=== PATIENT | female | born 1985 | race American Indian/Alaskan Native ===

== ENCOUNTER 2016-12-21 14:16 | Emergency (ER) | payer BC, OTHER ==
--- NOTE | 2016-12-21 14:32 | Emergency Department Report ---
Stated Complaint: COUGHING AND DEHYDRATED Time Seen by Provider: 12/21/16 14:28 - HPI History of Present Illness: PT states she feels dehydrated. PT states her mouth is dry. Pt states she keeps drinking water. - ROS Review of Systems: + dry mouth + nausea + fatigue decreased po intake since Tuesday lmp- yesterday - Exam Physical Exam: PT is alert and appropriate gcs 15 lips appear dry, oral mucousa moist MSE screening note: Focused history and physical exam performed. Due to findings the following was ordered: labs, accucheck ED Disposition for MSE Condition: Stable
[2016-12-21 15:29] LABS: Basophils % (Auto) 0.5 % (0.0-1.8); Eosinophils % (Auto) 0.8 % (0.0-4.3); Hematocrit 41.1 % (30.3-42.9); Hemoglobin 13.4 gm/dl (10.1-14.3); Mean Corpuscular HGB Conc 33 % (30-34); Mean Corpuscular Hemoglobin 27 pg (28-32); Mean Corpuscular Volume 84 fl (79-97); Platelet Count 334 K/mm3 (140-440); Red Blood Count 4.92 M/mm3 (3.65-5.03); Red Cell Distribution Width 14.9 % (13.2-15.2); White Blood Count 10.6 K/mm3 (4.5-11.0)
[2016-12-21 15:47] LABS: Alanine Aminotransferase 21 units/L (7-56); Albumin 4.2 g/dL (3.9-5); Alkaline Phosphatase 72 units/L (35-129); Anion Gap 22 mmol/L; BUN/Creatinine Ratio 11; Blood Urea Nitrogen 10 mg/dL (7-17); Calcium 9.5 mg/dL (8.4-10.2); Carbon Dioxide 21 mmol/L (22-30); Glucose 114 mg/dL (65-100); Sodium 142 mmol/L (137-145); Total Protein 8.4 g/dL (6.3-8.2)
[2016-12-21] MEDS ORDERED: DUONEB *Not for PRN Use IH ONE (16:44)
[2016-12-21] MEDS ORDERED: NACL 0.9% 1000 ML 1,000 ML IV ONE (16:44)
[2016-12-21 18:19] VITALS: BP 106/63
[2016-12-21] MEDS ORDERED: ROCEPHIN/NS 1 GM/50 ML 1 GM/50 ML BAG IV ONE (18:32)
--- NOTE | 2016-12-21 18:36 | Emergency Department Report ---
- General Chief Complaint: Weakness Stated Complaint: COUGHING AND DEHYDRATED Time Seen by Provider: 12/21/16 14:28 Source: patient Mode of arrival: Ambulatory Limitations: No Limitations - History of Present Illness MD Complaint: cough Onset/Timin -: days(s) Severity: moderate Consistency: intermittent Improves With: nothing Worsens With: nothing Associated Symptoms: myalgias, other (dry mouth) - Related Data Previous Rx's Medication Instructions Recorded Last Taken Type Cyclobenzaprine [Flexeril] 10 mg PO TID PRN #15 tablet 12/09/15 Unknown Rx traMADol [Ultram] 50 mg PO Q4HR PRN #20 tablet 12/09/15 Unknown Rx Azithromycin [Zithromax Z-ANNIE] 250 mg PO DAILY #6 tab 12/21/16 Unknown Rx Ibuprofen 800 mg PO Q8HR PRN #30 tablet 12/21/16 Unknown Rx Prednisone [predniSONE 10 mg 10 mg PO .TAPER #1 tab.ds.pk 12/21/16 Unknown Rx (6-Day Pack, 21 Tabs)] guaiFENesin/CODEINE [Robitussin AC] 5 ml PO Q6HR PRN #120 ml 12/21/16 Unknown Rx Allergies Allergy/AdvReac Type Severity Reaction Status Date / Time No Known Allergies Allergy Unverified 11/21/14 05:14 ED Review of Systems ROS: Stated complaint: COUGHING AND DEHYDRATED Other details as noted in HPI Comment: All other systems reviewed and negative Constitutional: no symptoms reported, malaise, weakness. denies: chills, diaphoresis, fever ENT: denies: throat pain, congestion Respiratory: cough. denies: orthopnea, shortness of breath, SOB with exertion, SOB at rest, stridor, wheezing Cardiovascular: denies: chest pain, palpitations, dyspnea on exertion, orthopnea , edema, syncope, paroxysmal nocturnal dyspnea Gastrointestinal: denies: abdominal pain, nausea, vomiting, diarrhea Genitourinary: denies: urgency, dysuria, frequency, hematuria Musculoskeletal: denies: back pain, joint swelling, arthralgia Skin: denies: rash ED Past Medical Hx - Past Medical History Previous Medical History?: Yes Hx Kidney Stones: No Additional medical history: Bronchitis - Surgical History Past Surgical History?: Yes Additional Surgical History: dental - Social History Smoking Status: Never Smoker Substance Use Type: None - Medications Home Medications: Home Medications Medication Instructions Recorded Confirmed Last Taken Type Cyclobenzaprine [Flexeril] 10 mg PO TID PRN #15 tablet 12/09/15 Unknown Rx traMADol [Ultram] 50 mg PO Q4HR PRN #20 tablet 12/09/15 Unknown Rx Azithromycin [Zithromax Z-ANNIE] 250 mg PO DAILY #6 tab 12/21/16 Unknown Rx Ibuprofen 800 mg PO Q8HR PRN #30 tablet 12/21/16 Unknown Rx Prednisone [predniSONE 10 mg 10 mg PO .TAPER #1 tab.ds.pk 12/21/16 Unknown Rx (6-Day Pack, 21 Tabs)] guaiFENesin/CODEINE [Robitussin AC] 5 ml PO Q6HR PRN #120 ml 12/21/16 Unknown Rx ED Physical Exam - General Limitations: No Limitations General appearance: alert, in no apparent distress - Head Head exam: Present: atraumatic, normocephalic, normal inspection - Eye Eye exam: Present: normal appearance, PERRL, EOMI - Respiratory Respiratory exam: Present: normal lung sounds bilaterally, wheezes. Absent: respiratory distress, rales, rhonchi, stridor, chest wall tenderness - Cardiovascular Cardiovascular Exam: Present: normal rhythm, tachycardia, normal heart sounds - Extremities Exam Extremities exam: Present: normal inspection, full ROM. Absent: tenderness - Neurological Exam Neurological exam: Present: alert, oriented X3, normal gait - Psychiatric Psychiatric exam: Present: normal affect, normal mood - Skin Skin exam: Present: warm, dry, intact ED Course Vital Signs 12/21/16 12/21/16 14:29 18:19 Temperature 98.4 F Pulse Rate 120 H 80 Respiratory 16 20 Rate Blood Pressure 133/82 Blood Pressure 106/63 [Right] O2 Sat by Pulse 99 100 Oximetry ED Medical Decision Making - Lab Data Result diagrams: 12/21/16 14:58 12/21/16 14:58 Lab Results 12/21/16 12/21/16 12/21/16 Range/Units 14:41 14:58 14:58 WBC 10.6 (4.5-11.0) K/mm3 RBC 4.92 (3.65-5.03) M/mm3 Hgb 13.4 (10.1-14.3) gm/dl Hct 41.1 (30.3-42.9) % MCV 84 (79-97) fl MCH 27 L (28-32) pg MCHC 33 (30-34) % RDW 14.9 (13.2-15.2) % Plt Count 334 (140-440) K/mm3 Lymph % (Auto) 18.1 (13.4-35.0) % [facility] % (Auto) 5.8 (0.0-7.3) % Eos % (Auto) 0.8 (0.0-4.3) % Baso % (Auto) 0.5 (0.0-1.8) % Lymph # 1.9 (1.2-5.4) K/mm3 [facility] # 0.6 (0.0-0.8) K/mm3 Eos # 0.1 (0.0-0.4) K/mm3 Baso # 0.1 (0.0-0.1) K/mm3 Seg Neutrophils % 74.8 H (40.0-70.0) % Seg Neutrophils # 7.9 H (1.8-7.7) K/mm3 Sodium 142 (137-145) mmol/L Potassium 4.0 (3.6-5.0) mmol/L Chloride 103.0 (98-107) mmol/L Carbon Dioxide 21 L (22-30) mmol/L Anion Gap 22 mmol/L BUN 10 (7-17) mg/dL Creatinine 0.9 (0.7-1.2) mg/dL Estimated GFR > 60 ml/min BUN/Creatinine Ratio 11 % Glucose 114 H (65-100) mg/dL POC Glucose 109 H (70-105) Calcium 9.5 (8.4-10.2) mg/dL Total Bilirubin 0.70 (0.1-1.2) mg/dL AST 14 (5-40) units/L ALT 21 (7-56) units/L Alkaline Phosphatase 72 (35-129) units/L Total Protein 8.4 H (6.3-8.2) g/dL Albumin 4.2 (3.9-5) g/dL Albumin/Globulin Ratio 1.0 % Lipase (13-60) units/L HCG, Qual (Negative) 12/21/16 12/21/16 Range/Units 14:58 14:58 WBC (4.5-11.0) K/mm3 RBC (3.65-5.03) M/mm3 Hgb (10.1-14.3) gm/dl Hct (30.3-42.9) % MCV (79-97) fl MCH (28-32) pg MCHC (30-34) % RDW (13.2-15.2) % Plt Count (140-440) K/mm3 Lymph % (Auto) (13.4-35.0) % [facility] % (Auto) (0.0-7.3) % Eos % (Auto) (0.0-4.3) % Baso % (Auto) (0.0-1.8) % Lymph # (1.2-5.4) K/mm3 [facility] # (0.0-0.8) K/mm3 Eos # (0.0-0.4) K/mm3 Baso # (0.0-0.1) K/mm3 Seg Neutrophils % (40.0-70.0) % Seg Neutrophils # (1.8-7.7) K/mm3 Sodium (137-145) mmol/L Potassium (3.6-5.0) mmol/L Chloride (98-107) mmol/L Carbon Dioxide (22-30) mmol/L Anion Gap mmol/L BUN (7-17) mg/dL Creatinine (0.7-1.2) mg/dL Estimated GFR ml/min BUN/Creatinine Ratio % Glucose (65-100) mg/dL POC Glucose (70-105) Calcium (8.4-10.2) mg/dL Total Bilirubin (0.1-1.2) mg/dL AST (5-40) units/L ALT (7-56) units/L Alkaline Phosphatase (35-129) units/L Total Protein (6.3-8.2) g/dL Albumin (3.9-5) g/dL Albumin/Globulin Ratio % Lipase 36 (13-60) units/L HCG, Qual Negative (Negative) - Radiology Data Radiology results: image reviewed interpreted by me: chest x-ray 2 view: there is patchy infiltrtate on the left upper lobe, near the left bronchus. - Medical Decision Making Patient was in no acute distress, patient had no wheezing on auscultation. Patient was given a DuoNeb treatment and Solu-Medrol IV. Patient was given Rocephin 1 g IV after the chest x-ray was reviewed. Patient was discharged with a prescription for azithromycin, prednisone tapering dose, guaifenesin with codeine and ibuprofen. Patient was given information on follow-up at [facility]. Patient's heart rate came down to 80 beats per minutes after she was given 1 L of normal saline in the ER. - Differential Diagnosis pneumonia, bronchitis, URI Critical care attestation.: If time is entered above; I have spent that time in minutes in the direct care of this critically ill patient, excluding procedure time. ED Disposition Clinical Impression: Pneumonia Qualifiers: Pneumonia type: due to unspecified organism Laterality: left Lung location: upper lobe of lung Qualified Code(s): J18.1 - Lobar pneumonia, unspecified organism Disposition: TO HOME OR SELFCARE Is pt being admited?: No Does the pt Need Aspirin: No Condition: Good Instructions: Community-acquired Pneumonia (ED) Additional Instructions: Take azithromycin as prescribed, take guaifenesin with codeine 1 teaspoon every 6 hours as needed for cough. Take albuterol inhaler every 4-6 hours as needed for wheezing. Take prednisone tapering dose as prescribed. Return to the ER for any fever or worsening symptoms. Prescriptions: Azithromycin [Zithromax Z-ANNIE] 250 mg PO DAILY #6 tab guaiFENesin/CODEINE [Robitussin AC] 5 ml PO Q6HR PRN #120 ml PRN Reason: Cough Ibuprofen 800 mg PO Q8HR PRN #30 tablet PRN Reason: Pain Prednisone [predniSONE 10 mg (6-Day Pack, 21 Tabs)] 10 mg PO .TAPER #1 tab.ds.pk Referrals: PRIMARY CARE, [Primary Care Provider] - 3-5 Days [facility] [Outside] - 3-5 Days Forms: Work/School Release Form(ED) Time of Disposition: 18:36
--- NOTE | 2016-12-22 08:19 | XRay Report ---
XRAY CHEST TWO VIEWS: 12/21/16 14:16:00 CLINICAL: Coughing and wheezing. COMPARISON: None FINDINGS: Normal heart and pulmonary vasculature. The lungs are normally expanded and clear.The bones and soft tissues are unremarkable. IMPRESSION: Normal chest.
== END 2016-12-21 19:40 | disposition home or self-care (01) ==
LOC: ED 14:16
DX: J18.1 Lobar pneumonia, unspecified organism (principal); M79.1 Myalgia
CPT/HCPCS: 36415; 71020; 80053; 82962; 83690; 84703; 85025; 94640; 96361; 96365; 96375; 99284; J0696; J2930; J7030

== ENCOUNTER 2017-02-16 12:24 | Emergency (ER) | payer BC ==
[2017-02-16 13:18] LABS: Basophils % (Auto) 0.5 % (0.0-1.8); Eosinophils % (Auto) 1.6 % (0.0-4.3); Hematocrit 33.9 % (30.3-42.9); Hemoglobin 11.4 gm/dl (10.1-14.3); Mean Corpuscular HGB Conc 34 % (30-34); Mean Corpuscular Hemoglobin 27 pg (28-32); Mean Corpuscular Volume 82 fl (79-97); Platelet Count 294 K/mm3 (140-440); Red Blood Count 4.15 M/mm3 (3.65-5.03); White Blood Count 8.5 K/mm3 (4.5-11.0)
[2017-02-16 13:23] LABS: Alanine Aminotransferase 11 units/L (7-56); Albumin 3.9 g/dL (3.9-5); Albumin/Globulin Ratio 1.3 %; Alkaline Phosphatase 72 units/L (35-129); Anion Gap 17 mmol/L; BUN/Creatinine Ratio 10; Blood Urea Nitrogen 6 mg/dL (7-17); Calcium 8.7 mg/dL (8.4-10.2); Carbon Dioxide 24 mmol/L (22-30); Chloride 106.6 mmol/L (98-107); Glucose 93 mg/dL (65-100); Lipase 35 units/L (13-60); Potassium 3.9 mmol/L (3.6-5.0); Sodium 144 mmol/L (137-145); Total Protein 6.9 g/dL (6.3-8.2)
[2017-02-16 17:21] LABS: Bilirubin,Urine NEG (Negative); Blood,Urine MOD (Negative); Ketones,Urine NEG (Negative); Leukocyte Esterase,Urine NEG (Negative); Mucus,Urine FEW /HPF; Nitrite,Urine NEG (Negative); Protein,Urine <15 mg/dL mg/dL (Negative); Urobilinogen,Urine < 2.0 mg/dL (<2.0)
--- NOTE | 2017-02-17 00:56 | Emergency Department Report ---
ED Abdominal Pain HPI - General Chief Complaint: Abdominal Pain Stated Complaint: ABDOMINAL PAIN Time Seen by Provider: 02/17/17 00:53 Source: patient Mode of arrival: Ambulatory Limitations: No Limitations - History of Present Illness Initial Comments: Patient is a 31-year-old female presents to ER with abdominal pain and abdominal cramping X2 days. Patient is currently on her cycle and is passing large clots and having heavy bleeding. She has history of fibroids. She also states lifting a lot at work.. Patient denies fever and chills and chest pain and shortness of breath. She states the pain is in her bilateral lower quadrant. MD Complaint: abdominal pain -: Gradual, days(s) Location: LLQ, RLQ (bilateral lower quadrant but left more than right) Migration to: no migration Severity scale (0 -10): 4 Quality: cramping, stabbing Consistency: constant Improves With: rest Worsens With: eating, movement Associated Symptoms: denies other symptoms - Related Data LMP Date: 02/17/17 Previous Rx's Medication Instructions Recorded Last Taken Type Cyclobenzaprine [Flexeril] 10 mg PO TID PRN #15 tablet 12/09/15 Unknown Rx traMADol [Ultram] 50 mg PO Q4HR PRN #20 tablet 12/09/15 Unknown Rx Azithromycin [Zithromax Z-ANNIE] 250 mg PO DAILY #6 tab 12/21/16 Unknown Rx Ibuprofen 800 mg PO Q8HR PRN #30 tablet 12/21/16 Unknown Rx Prednisone [predniSONE 10 mg 10 mg PO .TAPER #1 tab.ds.pk 12/21/16 Unknown Rx (6-Day Pack, 21 Tabs)] guaiFENesin/CODEINE [Robitussin AC] 5 ml PO Q6HR PRN #120 ml 12/21/16 Unknown Rx Allergies Allergy/AdvReac Type Severity Reaction Status Date / Time No Known Allergies Allergy Unverified 11/21/14 05:14 ED Review of Systems ROS: Stated complaint: ABDOMINAL PAIN Other details as noted in HPI Comment: All other systems reviewed and negative Constitutional: no symptoms reported Eyes: as per HPI ENT: as per HPI Respiratory: no symptoms reported Cardiovascular: as per HPI Endocrine: no symptoms reported Gastrointestinal: as per HPI, abdominal pain Genitourinary: as per HPI Musculoskeletal: as per HPI Skin: as per HPI Neurological: as per HPI Psychiatric: as per HPI Hematological/Lymphatic: as per HPI ED Past Medical Hx - Past Medical History Previous Medical History?: Yes Hx Kidney Stones: No Additional medical history: Bronchitis, Uterine fibroids - Surgical History Past Surgical History?: Yes Additional Surgical History: dental - Family History Family history: hypertension - Social History Smoking Status: Never Smoker Substance Use Type: Alcohol, Non Opiate Pain - Medications Home Medications: Home Medications Medication Instructions Recorded Confirmed Last Taken Type Cyclobenzaprine [Flexeril] 10 mg PO TID PRN #15 tablet 12/09/15 Unknown Rx traMADol [Ultram] 50 mg PO Q4HR PRN #20 tablet 12/09/15 Unknown Rx Azithromycin [Zithromax Z-ANNIE] 250 mg PO DAILY #6 tab 12/21/16 Unknown Rx Ibuprofen 800 mg PO Q8HR PRN #30 tablet 12/21/16 Unknown Rx Prednisone [predniSONE 10 mg 10 mg PO .TAPER #1 tab.ds.pk 12/21/16 Unknown Rx (6-Day Pack, 21 Tabs)] guaiFENesin/CODEINE [Robitussin AC] 5 ml PO Q6HR PRN #120 ml 12/21/16 Unknown Rx ED Physical Exam - General Limitations: No Limitations General appearance: alert, in no apparent distress - Head Head exam: Present: atraumatic, normocephalic - Eye Eye exam: Present: normal appearance - ENT ENT exam: Present: mucous membranes moist - Neck Neck exam: Present: normal inspection - Respiratory Respiratory exam: Present: normal lung sounds bilaterally. Absent: respiratory distress - Cardiovascular Cardiovascular Exam: Present: regular rate, normal rhythm. Absent: systolic murmur, diastolic murmur, rubs, gallop - GI/Abdominal GI/Abdominal exam: Present: soft, tenderness (left lower quadrant tenderness and right lower quadrant tenderness), normal bowel sounds - Extremities Exam Extremities exam: Present: normal inspection - Back Exam Back exam: Present: normal inspection - Neurological Exam Neurological exam: Present: alert, oriented X3 - Psychiatric Psychiatric exam: Present: normal affect, normal mood - Skin Skin exam: Present: warm, dry, intact, normal color. Absent: rash ED Course Vital Signs 02/16/17 02/16/17 02/17/17 12:39 20:37 01:54 Temperature 98.8 F 98.1 F Pulse Rate 81 65 Respiratory 18 18 18 Rate Blood Pressure 142/80 Blood Pressure 152/90 [Right] O2 Sat by Pulse 98 100 100 Oximetry 02/17/17 02:07 Temperature Pulse Rate 72 Respiratory 18 Rate Blood Pressure Blood Pressure 111/66 [Right] O2 Sat by Pulse 100 Oximetry ED Medical Decision Making - Lab Data Result diagrams: 02/16/17 12:47 02/16/17 12:47 - Radiology Data Radiology results: report reviewed No acute findings on CT scan per radiologist report - Medical Decision Making CT abdomen acute findings. CT positive for fibroid. Patient is stable for discharge. Will discharge patient home. The patient will be instructed to follow PCP and OFFICE WORKER as soon as possible. All labs reviewed - Differential Diagnosis abd wall. abd pain. colitis Critical care attestation.: If time is entered above; I have spent that time in minutes in the direct care of this critically ill patient, excluding procedure time. ED Disposition Clinical Impression: Abdominal pain, Heavy menstrual bleeding, Fibroids Disposition: - TO HOME OR SELFCARE Is pt being admited?: No Does the pt Need Aspirin: No Condition: Stable Instructions: Abdominal Pain (ED), Uterine Fibroids (ED), Menorrhagia (ED) Additional Instructions: Patient to take Tylenol when necessary for pain. Patient increase water. Patient to return to ED if condition worsens. Patient to follow-up with OFFICE WORKER and PCP within 3-5 days. Referrals: PRIMARY CAREMD [Primary Care Provider] - 3-5 Days Time of Disposition: 04:03
--- NOTE | 2017-02-17 02:11 | Cat Scan Report ---
FINAL REPORT PROCEDURE: CT ABDOMEN PELVIS WO CON TECHNIQUE: Computerized axial tomography of the abdomen and pelvis was performed without intravenous contrast. This study is performed without intravascular contrast material and its sensitivity for abdominal and pelvic pathology, including neoplasms, inflammation, abscess, free fluid, thrombosis, arterial dissection and infarction, is reduced compared with a contrast enhanced study. HISTORY: ABD PAin COMPARISON: No prior studies are available for comparison. FINDINGS: Visualized lower thorax: No significant abnormality. Liver: Normal size and attenuation. Spleen: Normal size and attenuation. Gallbladder and biliary system: Normal. Pancreas: Normal. Adrenals: Normal. Kidneys: There are no kidney stones or ureteral stones. There is no hydronephrosis.. GI tract: There is limited evaluation of the bowel due to lack of contrast. No obstruction is seen. There is no specific evidence of colitis or enteritis. The appendix is normal.. Lymph nodes and mesentery: Normal. Vasculature: Normal. Bladder: Normal. Reproductive organs: The uterus is bulky suggesting underlying fibroids. Ovaries are unremarkable.. Peritoneum: There is no ascites or free air, abscess or adenopathy.. Musculoskeletal structures: No significant abnormality. Other: None. IMPRESSION: There are no kidney stones or ureteral stones. There is no hydronephrosis.. There is limited evaluation of the bowel due to lack of contrast. No obstruction is seen. There is no specific evidence of colitis or enteritis. The appendix is normal.. The uterus is bulky suggesting underlying fibroids. Ovaries are unremarkable.. There is no ascites or free air, abscess or adenopathy.. .
[2017-02-17 04:11] VITALS: BP 152/86
== END 2017-02-17 04:12 | disposition home or self-care (01) ==
LOC: ED 12:24
DX: R10.30 Lower abdominal pain, unspecified (principal); D21.9 Benign neoplasm of connective and other soft tissue, unspecified; N92.0 Excessive and frequent menstruation with regular cycle
CPT/HCPCS: 36415; 74176; 80053; 81001; 81025; 83690; 85025